=== PATIENT | female | born 1965 | race Caucasian/White ===

== ENCOUNTER 2020-07-11 18:36 | Emergency (ER) | payer OTHER ==
[2020-07-11 20:26] LABS: HEMOGLOBIN 14.6 gm/dl (12.3-15.3); RED BLOOD COUNT 4.76 M/UL (4.00-5.10)
[2020-07-11 20:58] LABS: BUN/CREATININE RATIO 13 (0-10)
== END 2020-07-11 22:46 | disposition home or self-care (01) ==
LOC: ER1 18:36
PROVIDERS: Family Medicine
DX: I10 Essential (primary) hypertension (principal); F17.210 Nicotine dependence, cigarettes, uncomplicated
CPT/HCPCS: 36415; 80053; 82550; 82553; 83874; 84484; 85025; 93005; 99283

== ENCOUNTER → 2021-03-22 | Outpatient (CLI) | payer OTHER | LOC: MAMO 11:21 | DX: Z12.31 Encounter for screening mammogram for malignant neoplasm of breast (principal) | CPT/HCPCS: 77063; 77067 ==